=== PATIENT | male | born 1995 | race Caucasian/White ===

== ENCOUNTER 2017-04-14 22:52 | Emergency (ER) | payer OTHER ==
[~2017-04-14] VITALS: Ht 182.9 cm; Wt 95.0 kg
[2017-04-14 23:00] VITALS: TEMP 37.2; Ht 182.9 cm; Wt 95.0 kg
[2017-04-14] MEDS ORDERED: SODIUM CHLORIDE 0.9% 1000ML 1,000 ML IV STA (23:03)
[2017-04-14] MEDS ORDERED: OPTIRAY 320 IV PRN (23:30)
[2017-04-15 00:24] LABS: BASO % 0.1 %; BASO ABS # 0.02 K/uL (0-0.2); EOS % 0.2 %; EOS ABS # 0.03 K/uL (0-0.5); HEMATOCRIT 44.9 % (42-52); HEMOGLOBIN 15.4 g/dL (14.0-18.0); IG# 0.16 K/uL (0.00-0.02); LYMPH % 12.4 %; LYMPH ABS # 2.06 K/uL (1.2-3.4); MEAN CELL VOLUME 83.3 fL (80-100); MEAN CORPUSCULAR HEMOGLOBIN 28.6 pg (25-34); MEAN CORPUSCULAR HGB CONC 34.3 g/dl (32-36); MEAN PLATELET VOLUME 10.4 fL (7.4-10.4); MONO % 6.5 %; MONO ABS # 1.07 K/uL (0.11-0.59); NEUT % 79.8 %; NEUT ABS # 13.21 K/uL (1.4-6.5); PLATELET COUNT 254 K/uL (130-400); RED CELL DISTRIBUTION WIDTH CV 12.3 % (11.5-14.5); RED CELL DISTRIBUTION WIDTH SD 36.9 fL (36.4-46.3); WHITE BLOOD COUNT 16.55 K/uL (4.8-10.8)
[2017-04-15 00:52] LABS: ALBUMIN 4.5 gm/dl (3.4-5.0); CALCIUM 8.9 mg/dl (8.5-10.1); CREATININE 1.02 mg/dl (0.60-1.40); TOTAL PROTEIN 7.7 gm/dl (6.4-8.2)
[2017-04-15 01:35] LABS: AST/SGOT 17 U/L (15-37)
[2017-04-15 01:42] VITALS: BP 128/72; PULSE 80; O2SAT 98
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
== END 2017-04-15 01:44 | disposition home or self-care (01) ==
LOC: EDBD 22:52 → C.EDB 22:56
DX: S00.81XA Abrasion of other part of head, initial encounter (principal); S60.512A Abrasion of left hand, initial encounter; F10.129 Alcohol abuse with intoxication, unspecified; F12.129 Cannabis abuse with intoxication, unspecified; V47.5XXA Car driver injured in collision with fixed or stationary object in traffic accident, initial encounter; F17.200 Nicotine dependence, unspecified, uncomplicated

== ENCOUNTER → 2017-04-14 | Outpatient (CLI) | payer OTHER | END | disposition home or self-care (01) | LOC: C.LAB 23:10 | DX: Z02.83 Encounter for blood-alcohol and blood-drug test (principal) ==